=== PATIENT | female | born 1960 | race Caucasian/White ===

== ENCOUNTER 2018-10-04 07:59 | Day surgery (SDC) | payer OTHER ==
[~2018-10-04] VITALS: Ht 157.5 cm; Wt 55.6 kg
--- NOTE | 2018-10-04 08:55 | PREAC ---
Date/Time of Note Date/Time of Note DATE: 10/04/18 TIME: 08:54 Anesthesia Eval and Record Evaluation Time Pre-Procedure Interview DATE: 10/04/18 TIME: 08:54 Age 58 Sex female NPO: 8 hrs Preoperative diagnosis SCREENING Planned procedure COLONOSCOPY Past Medical History Past Medical History: Includes Cardio: HTN, Dyslipidemia Endo: Diabetes Surgery & Anesthesia Issues No known issue Meds Anticoagulation: No Beta Gladys within 24 hr: No Reason Beta Gladys not given: Pt. not on B-Gladys Meds reviewed: Yes Allergies Allergies Reviewed: Yes Labs/Studies Labs Reviewed: Other (N/A) test: N/A Pre-procedure Exam Airway: Adequate mouth opening, Adequate thyromental dist Mallampati: Mallampati II Teeth: Normal Lung: Normal Heart: Normal ASA Physical Status ASA physical status: 3 Emergency: None Planned Anesthetic General/MAC: MAC, TIVA Planned Pain Management Parenteral pain med, Local by surgeon Pre-operative Attestations Prior to commencing anesthesia and surgery, the patient was re-evaluated, there was verification of: *The patient's identity *The results of appropriate recent lab work and preoperative vital signs *The above evaluation not changing prior to induction *Anesthetic plan, risk benefits, alternative and complications discussed with patient/family; questions answered; patient/family understands, accepts and wishes to proceed. KAMRYN MARTINEZ Oct 04, 2018 08:55
[2018-10-04] MEDS ORDERED: INSU100I33 SC (09:06)
[2018-10-04] MEDS ORDERED: METF850T13 PO (09:06)
[2018-10-04] MEDS ORDERED: ASPI-903 PO (09:06)
[2018-10-04] MEDS ORDERED: ATOR10TA65 PO (09:06)
[2018-10-04] MEDS ORDERED: LISI10TA2 PO (09:06)
[2018-10-04 09:08] VITALS: Ht 157.5 cm; Wt 55.6 kg
[2018-10-04] MEDS ORDERED: MIDAZOLAM 1 MG/ML 2 ML INJ ONE (09:21)
[2018-10-04] MEDS ORDERED: PROPOFOL 20 ML ONE (09:21)
[2018-10-04] MEDS ORDERED: FENTAnyl 50 MCG/ML VIAL ONE (09:21)
[2018-10-04] MEDS ORDERED: LIDOCAINE 2% (SDV) 5 ML INJ ONE (09:21)
[2018-10-04 09:25] VITALS: BP 169/71; PULSE 97; RESP 18
[2018-10-04] MEDS ORDERED: OXYCODONE/ACETAMINOPHEN (5/325) TAB PO PRN ×2 (09:30)
[2018-10-04] MEDS ORDERED: ONDANSETRON 4 MG INJ IV PRN (09:30)
[2018-10-04 10:11] VITALS: BP 117/69; PULSE 61; RESP 18
== END 2018-10-04 11:14 | disposition home or self-care (01) ==
LOC: GIL 07:59
PROVIDERS: ATTEND Internal Medicine Gastroenterology
DX: Z12.11 Encounter for screening for malignant neoplasm of colon (principal); E11.9 Type 2 diabetes mellitus without complications; I10 Essential (primary) hypertension; E78.5 Hyperlipidemia, unspecified
CPT/HCPCS: 45378; J2250; J3010; Z7610